=== PATIENT | male | born 1970 | race African-American/Black ===

== ENCOUNTER 2020-10-14 04:03 | Inpatient (IN) | payer MEDICAID ==
[2020-10-14] VITALS (9 sets, daily range): BP systolic 121–162; BP diastolic 56–101
[~2020-10-14] VITALS: Ht 172.7 cm; Wt 123.2 kg
[~2020-10-14 04:03] MED LIST: AMLO10TA4; ASPI-867; CLON0.2T12; CLOP-31; LIP40; METO50TA95; VALS160T2
[2020-10-14] MEDS ORDERED: DILTIAZEM HCL 5MG/ML 5ML VIAL IV ONE (04:30)
[2020-10-14] MEDS ORDERED: ASPIRIN 81MG TABLET PO ONE (04:30)
[2020-10-14 04:40] LABS: BASOPHILS % 0.5 % (0.0-2.0); EOSINOPHILS % 3.8 % (0.0-5.0); HEMATOCRIT. 33.1 % (42.0-52.0); HEMOGLOBIN. 11.8 g/dL (14.0-18.0); LYMPHOCYTES % 25.2 % (20.0-50.0); MEAN CORPUSCULAR HEMOGLOBIN 31.7 pg (28.0-32.0); MEAN CORPUSCULAR VOLUME 88.8 fL (80.0-94.0); MEAN PLATELET VOLUME 7.1 fl (7.4-10.4); MONOCYTES % 9.5 % (2.0-8.0); PLATELET 247 x1000/uL (130-400); RED BLOOD CELL COUNT 3.73 mill/uL (4.7-6.1)
[2020-10-14 04:48] LABS: CHLORIDE 101 mEq/L (98-107)
[2020-10-14 04:49] LABS: PARTIAL THROMBOPLASTIN TIME 25.8 sec (23.4-31.0); PROTHROMBIN TIME 10.9 sec (9.6-11.0)
[2020-10-14 04:53] LABS: ETHANOL BLOOD < 10 mg/dL
[2020-10-14 05:07] LABS: CLARITY URINE CLEAR (CLEAR); COLOR URINE YELLOW (YELLOW); KETONES URINE NEGATIVE (NEGATIVE); LEUKOCYTE ESTERASE URINE NEGATIVE (NEGATIVE); NITRITE URINE NEGATIVE (NEGATIVE); OCCULT BLOOD URINE TRACE (NEGATIVE); PH URINE 8.5 (4.5-8.0); PROTEIN URINE 2+ (NEGATIVE); SPECIFIC GRAVITY URINE 1.012 (1.005-1.030); UROBILINOGEN URINE 0.2 E.U./dL (0.2-1.0)
[2020-10-14 05:37] LABS: *AMPHETAMINES SCREEN URINE NEGATIVE (NEGATIVE); *BARBITURATES SCREEN URINE NEGATIVE (NEGATIVE); *BENZODIAZEPINES SCREEN URINE NEGATIVE (NEGATIVE); *COCAINE SCREEN URINE NEGATIVE (NEGATIVE); CANNABINOID URINE SCREEN NEGATIVE (NEGATIVE); PHENCYCLIDINE URINE SCREEN NEGATIVE (NEGATIVE)
[2020-10-14 05:38] LABS: METHADONE URINE SCREEN NEGATIVE (NEGATIVE); OPIATES URINE SCREEN NEGATIVE (NEGATIVE)
[2020-10-14] MEDS ORDERED: ACETAMINOPHEN 325MG TABLET PO PRN (09:30)
[2020-10-14] MEDS ORDERED: ONDANSETRON HCL 4MG/2ML INJ IV PRN (09:30)
[2020-10-14] MEDS: ENOXAPARIN 120MG/0.8ML SYR SUBCUT SCH (10:16)
[2020-10-14 14:26] LABS: HEPATITIS B SURFACE ANTIGEN NEGATIVE
[2020-10-14 14:56] LABS: HEPATITIS A AB IGM NEGATIVE (NEGATIVE)
[2020-10-14] MEDS ORDERED: CINA30 MT (18:01)
[2020-10-14] MEDS ORDERED: BENA10TA74 MT (18:01)
[2020-10-14] MEDS ORDERED: OMEP20CA14 MT (18:01)
[2020-10-14] MEDS ORDERED: CHOL400T31 (18:01)
[2020-10-14] MEDS ORDERED: DARU1TAB MT (18:03)
[2020-10-14] MEDS ORDERED: DOLU50TA MT (18:03)
[2020-10-14] MEDS ORDERED: NON FORMULARY PATIENT HOME MED XX SCH (18:15)
[2020-10-14] MEDS: DILTIAZEM HCL 60MG TABLET PO SCH (20:26)
[2020-10-14] MEDS: TIVICAY PO SCH (20:27)
[2020-10-14] MEDS: PREZCOBIX PO SCH (20:28)
[2020-10-15] VITALS (13 sets, daily range): BP systolic 98–148; BP diastolic 39–74
[2020-10-15] MEDS: DILTIAZEM HCL 60MG TABLET PO SCH ×3 (06:00→12:20)
[2020-10-15] MEDS: OMEPRAZOLE 20MG CAPSULE EXTENDED RELEASE PO SCH (06:47)
[2020-10-15] MEDS ORDERED: CINACALCET HCL 30MG TABLET PO SCH (07:20)
[2020-10-15] MEDS: ENOXAPARIN 120MG/0.8ML SYR SUBCUT SCH (08:57)
[2020-10-15] MEDS: BENAZEPRIL 10MG TABLET PO SCH (08:57)
[2020-10-15] MEDS: TIVICAY PO SCH (08:58)
[2020-10-15] MEDS: PREZCOBIX PO SCH (08:58)
[2020-10-15] MEDS ORDERED: AMLODIPINE 10MG TABLET PO SCH (09:00)
[2020-10-15] MEDS ORDERED: ASPIRIN 81MG EC TABLET PO SCH (09:00)
[2020-10-15] MEDS ORDERED: CLOPIDOGREL 75MG TABLET PO SCH (09:00)
[2020-10-15] MEDS ORDERED: ATROPINE SULFATE 1MG/10ML SYR IV PRN (15:02)
[2020-10-15] MEDS: DILTIAZEM HCL 30MG TABLET PO SCH (22:00)
[2020-10-16] VITALS (10 sets, daily range): BP systolic 100–127; BP diastolic 43–86
[2020-10-16] MEDS: DILTIAZEM HCL 30MG TABLET PO SCH (06:00)
[2020-10-16] MEDS: OMEPRAZOLE 20MG CAPSULE EXTENDED RELEASE PO SCH (06:15)
[2020-10-16 09:08] LABS: ABSOLUTE BASOPHILS 0.1 x10E3/uL (0.0-0.2); ABSOLUTE EOSINOPHILS 0.3 x10E3/uL (0.0-0.4); ABSOLUTE LYMPHOCYTES 2.3 x10E3/uL (0.7-3.1); ABSOLUTE MONOCYTES 0.7 x10E3/uL (0.1-0.9); BASOPHILS 1 % (Not Estab.); HEMATOCRIT 34.1 % (37.5-51.0); HEMOGLOBIN 11.5 g/dL (13.0-17.7); IMMATURE GRANULOCYTES 0 % (Not Estab.); LYMPHOCYTES 28 % (Not Estab.); MEAN CORPUSCULAR HEMOGLOBIN 31.3 pg (26.6-33.0); MEAN CORPUSCULAR HGB CONC. 33.7 g/dL (31.5-35.7); MEAN CORPUSCULAR VOLUME 93 fL (79-97); MONOCYTES 8 % (Not Estab.); NEUTROPHILS 60 % (Not Estab.); PLATELETS 241 x10E3/uL (150-450); RBC 3.67 x10E6/uL (4.14-5.80); RED CELL DISTRIBUTION WIDTH 13.7 % (11.6-15.4); WBC 8.4 x10E3/uL (3.4-10.8)
[2020-10-16] MEDS: PREZCOBIX PO SCH (09:38)
[2020-10-16] MEDS: ENOXAPARIN 120MG/0.8ML SYR SUBCUT SCH (09:39)
[2020-10-16] MEDS: TIVICAY PO SCH (09:39)
[2020-10-16] MEDS: BENAZEPRIL 10MG TABLET PO SCH (09:39)
[2020-10-16] MEDS ORDERED: ASPIRIN 81MG EC TABLET PO SCH (11:30)
[2020-10-16 13:58] LABS: HEPATITIS B SURFACE ANTIGEN NEGATIVE
[2020-10-16 14:27] LABS: HEPATITIS A AB IGM NEGATIVE (NEGATIVE)
[2020-10-16] MEDS ORDERED: DILTIAZEM HCL 30MG TABLET PO SCH (17:00)
[2020-10-17] MEDS ORDERED: DILT30TA38 MT (10:06)
[2020-10-17] MEDS ORDERED: ASPI-1406 MT (10:06)
[2020-10-17 10:10] LABS: % CD 3 POS. LYMPHOCYTES 66.4 % (57.5-86.2); % CD 4 POS. LYMPHOCYTES 42.3 % (30.8-58.5); % CD 8 POS. LYMPH 24.7 % (12.0-35.5); ABSOLUTE CD 3 1527 /uL (622-2402); ABSOLUTE CD 4 HELPER 973 /uL (359-1519); ABSOLUTE CD 8 SUPPRESSOR 568 /uL (109-897); CD4/CD8 RATIO 1.71 (0.92-3.72)
== END 2020-10-16 18:15 | disposition home or self-care (01) | DRG 201 ==
LOC: ER 04:03 → 3WST 05:34 → ENRESERV 06:53 → CMPBEDREQ 12:26
PROVIDERS: ADMIT Internal Medicine; ATTEND Internal Medicine
PROC: 5A1D70Z Performance of Urinary Filtration, Intermittent, Less than 6 Hours Per Day (ICD-10-PCS; principal; 2020-10-14)
PROC: 5A1D70Z Performance of Urinary Filtration, Intermittent, Less than 6 Hours Per Day (ICD-10-PCS; 2020-10-16)
DX: I48.91 Unspecified atrial fibrillation (principal); I49.5 Sick sinus syndrome; I12.0 Hypertensive chronic kidney disease with stage 5 chronic kidney disease or end stage renal disease; E87.70 Fluid overload, unspecified; N18.6 End stage renal disease; Z68.41 Body mass index [BMI] 40.0-44.9, adult; D64.9 Anemia, unspecified; I16.0 Hypertensive urgency; E66.9 Obesity, unspecified; Z79.01 Long term (current) use of anticoagulants; Z79.899 Other long term (current) drug therapy; Z86.73 Personal history of transient ischemic attack (TIA), and cerebral infarction without residual deficits; Z79.82 Long term (current) use of aspirin; Z99.2 Dependence on renal dialysis
CPT/HCPCS: 36415; 71045; 80053; 80305; 80320; 81003; 83880; 84484; 85025; 86359; 86360; 86705; 86709; 86803; 87340; 93005; 93306; 99291; J1650; J3490; G0480

== ENCOUNTER 2021-12-06 02:39 | Emergency (ER) | payer MEDICAID ==
[~2021-12-06] VITALS: Ht 172.7 cm; Wt 116.3 kg
[~2021-12-06 02:39] MED LIST changes: +ASPI-1406 MT; +BENA10TA74 MT; +CHOL400T31; +CINA30 MT; +DARU1TAB MT; +DILT30TA38 MT; +DOLU50TA MT; +OMEP20CA14 MT; -VALS160T2
[2021-12-06 02:44] VITALS: BP 126/87
== END 2021-12-06 04:22 | disposition left against medical advice (07) ==
LOC: ER 02:39
DX: Z53.21 Procedure and treatment not carried out due to patient leaving prior to being seen by health care provider (principal)

== ENCOUNTER 2022-05-02 06:54 | Emergency (ER) | payer MEDICAID ==
[~2022-05-02] VITALS: Ht 175.3 cm; Wt 113.0 kg
[2022-05-02] MEDS: ONDANSETRON HCL 4MG/2ML INJ IV STA (08:04)
[2022-05-02] MEDS: SODIUM CHLORIDE 0.9% 1,000 ML IV ONE (08:05)
[2022-05-02 08:52] LABS: BASOPHILS % 0.4 % (0.0-2.0); EOSINOPHILS % 1.2 % (0.0-5.0); HEMATOCRIT. 35.4 % (42.0-52.0); HEMOGLOBIN. 12.6 g/dL (14.0-18.0); LYMPHOCYTES % 20.2 % (20.0-50.0); MEAN CORPUSCULAR HEMOGLOBIN 32.3 pg (28.0-32.0); MEAN CORPUSCULAR VOLUME 90.7 fL (80.0-94.0); MEAN PLATELET VOLUME 7.7 fl (7.4-10.4); MONOCYTES % 6.8 % (2.0-8.0); NEUTROPHILS % 71.4 % (40.0-76.0); PLATELET 256 x1000/uL (130-400); RED BLOOD CELL COUNT 3.91 mill/uL (4.7-6.1); RED CELL DISTRIBUTION WIDTH 13.9 % (11.6-14.6)
[2022-05-02 08:59] LABS: CHLORIDE 98 mEq/L (98-107)
[2022-05-02] MEDS ORDERED: LOPE2CAP PO (09:29)
[2022-05-02 09:38] VITALS: BP 142/75
== END 2022-05-02 09:39 | disposition home or self-care (01) ==
LOC: ER 06:59
DX: K52.9 Noninfective gastroenteritis and colitis, unspecified (principal); I12.0 Hypertensive chronic kidney disease with stage 5 chronic kidney disease or end stage renal disease; N18.6 End stage renal disease; Z99.2 Dependence on renal dialysis; D64.9 Anemia, unspecified; Z79.899 Other long term (current) drug therapy
CPT/HCPCS: 36415; 80053; 83690; 85025; 96361; 96374; 99283; J2405; J7030

== ENCOUNTER 2024-03-08 06:40 | Emergency (ER) | payer MEDICAID ==
[~2024-03-08] VITALS: Ht 172.7 cm; Wt 110.0 kg
[~2024-03-08 06:40] MED LIST changes: +DILT30TA37 MT; -DILT30TA38 MT; +LOPE2CAP PO; +ROSU40TA PO; +SUCR500T PO
[2024-03-08 06:50] VITALS: O2SAT 98
[2024-03-08 08:29] LABS: BASOPHILS % 0.8 % (0.0-2.0); EOSINOPHILS % 3.4 % (0.0-5.0); HEMATOCRIT. 29.7 % (42.0-52.0); HEMOGLOBIN. 10.3 g/dL (14.0-18.0); LYMPHOCYTES % 13.7 % (20.0-50.0); MEAN CORPUSCULAR HEMOGLOBIN 32.9 pg (28.0-32.0); MEAN CORPUSCULAR HGB CONC 34.7 g/dL (31.0-37.0); MEAN CORPUSCULAR VOLUME 94.9 fL (80.0-94.0); MEAN PLATELET VOLUME 7.4 fl (7.4-10.4); MONOCYTES % 6.7 % (2.0-8.0); NEUTROPHILS % 75.4 % (40.0-76.0); PLATELET 268 x1000/uL (130-400); RED BLOOD CELL COUNT 3.13 mill/uL (4.7-6.1); RED CELL DISTRIBUTION WIDTH 14.6 % (11.6-14.6); WHITE BLOOD COUNT 13.4 x1000/uL (4.5-11.0)
[2024-03-08 08:37] LABS: CHLORIDE 101 mEq/L (98-107); POTASSIUM 3.9 mEq/L (3.5-5.1); SODIUM 139 mEq/L (136-145)
[2024-03-08 08:38] LABS: CALCIUM 8.9 mg/dL (8.7-10.4); CARBON DIOXIDE 27 mEq/L (21-32); PARTIAL THROMBOPLASTIN TIME 31.6 sec (23.4-31.0); PROTHROMBIN TIME 11.1 sec (9.6-11.0)
[2024-03-08 08:43] LABS: GLUCOSE 119 mg/dL (70-105); TROPONIN I HIGH SENSITIVITY 9 ng/L (3.0-53); UREA NITROGEN BLOOD 31 mg/dL (9-23)
[2024-03-08 08:51] LABS: CREATININE 10.5 mg/dL (0.6-1.3)
[2024-03-08 09:16] VITALS: BP 107/49; PULSE 71; RESP 15; TEMP 36.50292; O2SAT 99
== END 2024-03-08 09:30 | disposition home or self-care (01) ==
LOC: ER 07:05
DX: T82.838A Hemorrhage due to vascular prosthetic devices, implants and grafts, initial encounter (principal); D64.9 Anemia, unspecified; I12.0 Hypertensive chronic kidney disease with stage 5 chronic kidney disease or end stage renal disease; N18.6 End stage renal disease; Z99.2 Dependence on renal dialysis; Z95.5 Presence of coronary angioplasty implant and graft; Z79.899 Other long term (current) drug therapy; Z98.890 Other specified postprocedural states; X58.XXXA Exposure to other specified factors, initial encounter; Y93.89 Activity, other specified; Y92.89 Other specified places as the place of occurrence of the external cause; Y99.8 Other external cause status
CPT/HCPCS: 36415; 71045; 80048; 83880; 84484; 85025; 86850; 86900; 93005; 99291

== ENCOUNTER 2024-09-13 21:00 | Emergency (ER) | payer MEDICAID ==
[~2024-09-13] VITALS: Ht 172.7 cm; Wt 104.0 kg
[~2024-09-13 21:00] MED LIST changes: +AMLO-905; -AMLO10TA4
[2024-09-13 21:03] VITALS: O2SAT 98
[2024-09-13 22:26] LABS: BASOPHILS % 0.6 % (0.0-2.0); EOSINOPHILS % 3.4 % (0.0-5.0); HEMATOCRIT. 32.6 % (42.0-52.0); HEMOGLOBIN. 11.2 g/dL (14.0-18.0); LYMPHOCYTES % 18.8 % (20.0-50.0); MEAN CORPUSCULAR HEMOGLOBIN 31.9 pg (28.0-32.0); MEAN CORPUSCULAR HGB CONC 34.4 g/dL (31.0-37.0); MEAN CORPUSCULAR VOLUME 92.5 fL (80.0-94.0); MEAN PLATELET VOLUME 7.5 fl (7.4-10.4); MONOCYTES % 6.9 % (2.0-8.0); NEUTROPHILS % 70.3 % (40.0-76.0); PLATELET 262 x1000/uL (130-400); RED BLOOD CELL COUNT 3.52 mill/uL (4.7-6.1); RED CELL DISTRIBUTION WIDTH 16.3 % (11.6-14.6); WHITE BLOOD COUNT 9.4 x1000/uL (4.5-11.0)
[2024-09-14 00:25] LABS: CHLORIDE 104 mEq/L (98-107); POTASSIUM 3.4 mEq/L (3.5-5.1); SODIUM 141 mEq/L (136-145)
[2024-09-14 00:26] LABS: CALCIUM 8.8 mg/dL (8.7-10.4); CARBON DIOXIDE 25 mEq/L (21-32)
[2024-09-14 00:31] LABS: GLUCOSE 77 mg/dL (70-105); TROPONIN I HIGH SENSITIVITY 17 ng/L (3.0-53); UREA NITROGEN BLOOD 72 mg/dL (9-23)
[2024-09-14 00:39] LABS: PROTHROMBIN TIME 20.1 sec (9.6-11.0)
[2024-09-14 00:48] LABS: CREATININE 15.3 mg/dL (0.6-1.3)
[2024-09-14 00:57] VITALS: BP 157/91; PULSE 75; RESP 11; TEMP 37.2; O2SAT 99
== END 2024-09-14 01:12 | disposition home or self-care (01) ==
LOC: ER 21:00
DX: R00.2 Palpitations (principal); R42 Dizziness and giddiness; I10 Essential (primary) hypertension; I51.7 Cardiomegaly; R06.89 Other abnormalities of breathing; Z79.899 Other long term (current) drug therapy; Z99.2 Dependence on renal dialysis; Z79.82 Long term (current) use of aspirin; Z79.02 Long term (current) use of antithrombotics/antiplatelets
CPT/HCPCS: 36415; 71045; 80048; 83880; 84484; 85025; 93005; 99285

== ENCOUNTER 2025-01-23 15:10 | Emergency (ER) | payer MEDICAID ==
[~2025-01-23] VITALS: Ht 172.7 cm; Wt 85.0 kg
[2025-01-23 15:16] VITALS: O2SAT 99
[2025-01-23 16:57] VITALS: BP 111/92; PULSE 85; RESP 18; TEMP 36.7; O2SAT 99
== END 2025-01-23 16:58 | disposition home or self-care (01) ==
LOC: ER 15:10
DX: T82.510A Breakdown (mechanical) of surgically created arteriovenous fistula, initial encounter (principal); I10 Essential (primary) hypertension; Z99.2 Dependence on renal dialysis; Z79.899 Other long term (current) drug therapy; Z79.82 Long term (current) use of aspirin; Z98.890 Other specified postprocedural states; Y71.2 Prosthetic and other implants, materials and accessory cardiovascular devices associated with adverse incidents; Y92.89 Other specified places as the place of occurrence of the external cause
CPT/HCPCS: 99283; A6449